=== PATIENT | female | born 1975 | race Caucasian/White ===

== ENCOUNTER → 2024-09-05 20:09 | Outpatient (REF) | payer OTHER, SELFPAY | LOC: MRI 3T 20:09 | PROVIDERS: ATTENDING PHYSICIAN Otolaryngology; FAMILY PHYSICIAN Nurse Practitioner Family | DX: H90.41 Sensorineural hearing loss, unilateral, right ear, with unrestricted hearing on the contralateral side (principal) | CPT/HCPCS: 70553; A9575 ==